=== PATIENT | male | born 1990 | race Caucasian/White ===

== ENCOUNTER 2019-11-23 13:45 | Emergency (ER) | payer BC ==
[2019-11-23 14:24] LABS: Absolute Lymphocytes (CBC) 2.1 K/uL (0.7-4.9); Basophils % 0.6 % (0-1.3); Hematocrit 39.6 % (39.6-49.0); Lymphocytes % 27.3 % (15.3-44.8); MPV 9.1 fL (7.6-11.3); RBC Red Blood Cell Count 5.04 M/uL (4.33-5.43)
[2019-11-23 14:28] LABS: Protime INR 1.02
--- NOTE | 2019-11-23 14:36 | RAD REPORT ---
EXAM DESCRIPTION: RAD - Chest Single View - 11/23/2019 2:24 pm CLINICAL HISTORY: CHEST PAIN COMPARISON: None TECHNIQUE: AP portable chest image was obtained 11/23/2019 2:24 pm . FINDINGS: Lungs are clear. Heart and vasculature are normal. No measurable pleural effusion and no p neumothorax. No acute bony abnormality seen. No acute aortic findings suspected. IMPRESSION: No acute cardiopulmonary process.
[2019-11-23 14:48] LABS: ALT/SGPT 70 U/L (12-78); AST/SGOT 26 U/L (15-37); Albumin 4.4 g/dL (3.4-5.0); Alkaline Phosphatase 77 U/L (45-117); BUN Blood Urea Nitrogen 16 mg/dL (7-18); Bicarbonate 26 mmol/L (21-32); Bilirubin Direct < 0.1 mg/dL (0-0.2); Bilirubin Total 0.3 mg/dL (0.2-1.0); Glucose Level 110 mg/dL (74-106); NT PRO-BNP 25 pg/mL (<125); Potassium 3.6 mmol/L (3.5-5.1); Protein, Total 7.9 g/dL (6.4-8.2); Sodium Level 140 mmol/L (136-145); Troponin (Emerg Dept Use Only) < 0.02 ng/mL (0.0-0.045)
[2019-11-23] MEDS ORDERED: NA CHLORIDE 0.9% 1,000 ML ONE (15:28)
--- NOTE | 2019-11-23 16:33 | RAD REPORT ---
EXAM DESCRIPTION: CT - Head Brain Wo Cont - 11/23/2019 4:18 pm CLINICAL HISTORY: SYNCOPE COMPARISON: No comparisons TECHNIQUE: Axial 5 mm thick images of the head were obtained without IV contrast. All CT scans are performed using dose optimization technique as appropriate and may include automated exposure control or mA/KV adjustment according to patient size. FINDINGS: No intracranial hemorrhage, mass, edema or shift of mid-line structures. No acute infarcti on changes seen. No abnormal extra-axial fluid collections. Ventricles are normal. Mastoid air cells and visualized portions of the paranasal sinuses are clear. No acute bony findings. IMPRESSION: Negative non-contrast CT head examination.
--- NOTE | 2019-11-23 16:43 | ER ---
Nurse's Notes [facility] Name: Goran Abreu Age: 29 yrs Sex: Male : 1990 Arrival Date: 11/23/2019 Time: 13:47 Bed 26 Private MD: Diagnosis: Syncope and collapse Presentation: 11/22 13:48 Chief complaint: Patient states: "I was at work and I felt funny and my body was numb sv and then I passed out, tongue tingling, chest pain since then. I feel fatigued." Denies cough, congestion. Reports feeling SOB, chills after passing out. Coronavirus screen: Patient denies fever greater than 100.4F, cough, shortness of breath, or difficulty breathing. Proceed with normal triage process. Ebola Screen: No symptoms or risks identified at this time. Risk Assessment: Do you want to hurt yourself or someone else? Patient reports no desire to harm self or others. 13:48 Method Of Arrival: Ambulatory sv 13:48 Acuity: RUPALI 3 sv 13:50 Onset of symptoms was November 23, 2019 at 12:00. bp 13:52 Initial Sepsis Screen: Does the patient meet any 2 criteria? No. Patient's initial sv sepsis screen is negative. Does the patient have a suspected source of infection? No. Patient's initial sepsis screen is negative. Triage Assessment: 13:57 General: Appears in no apparent distress. comfortable, obese, Behavior is cooperative, bp appropriate for age, anxious. Pain: Denies pain. EENT: No deficits noted. Neuro: Level of Consciousness is awake, alert, obeys commands, Oriented to person, place, time, situation, Appropriate for age. Cardiovascular: No deficits noted. Respiratory: No deficits noted. GI: No signs and/or symptoms were reported involving the gastrointestinal system. : No signs and/or symptoms were reported regarding the genitourinary system. Derm: No deficits noted. Musculoskeletal: No deficits noted. Historical: - Allergies: 13:51 No Known Allergies; sv - PMHx: 13:51 Borderline DM; High Cholesterol; sv - PSHx: 13:51 None; sv - Immunization history:: Adult Immunizations up to date. - Social history:: Smoking status: Patient reports use of chewing tobacco. Patient/guardian denies using tobacco, Stopped _ months ago .1 Patient uses alcohol, on a daily basis. Patient/guardian denies using street drugs, IV drugs. Screenin:59 Abuse screen: Denies threats or abuse. Denies injuries from another. Nutritional bp screening: No deficits noted. Tuberculosis screening: No symptoms or risk factors identified. Fall Risk None identified. Assessment: 13:59 General: SEE TRIAGE NOTE. bp 15:27 Reassessment: Patient appears in no apparent distress at this time. Patient and/or ls4 family updated on plan of care and expected duration. Pain level reassessed. Patient is alert, oriented x 3, equal unlabored respirations, skin warm/dry/pink. Patient states symptoms have improved. 16:58 Reassessment: PT D/C HOME AMBULATORY, DX WITH SYNCOPE. bp Vital Signs: 13:50 BP 135 / 69; Pulse 85; Resp 16; Temp 97.6; Pulse Ox 100% ; Weight 107.95 kg; Height 5 sv ft. 7 in. (170.18 cm); 14:14 BP 133 / 90; Pulse 76; Resp 16; Pulse Ox 99% ; bp 15:30 BP 137 / 94; Pulse 77; Resp 14; Pulse Ox 97% on R/A; Pain 0/10; ls4 16:58 BP 137 / 94; Pulse 72; Resp 16; Temp 98; Pulse Ox 95% ; bp 13:50 Body Mass Index 37.27 (107.95 kg, 170.18 cm) sv NIH Stroke Scale Scores: 14:24 NIHSS Score: 0 kb ED Course: 13:47 Patient arrived in ED. fj1 13:50 Triage completed. sv 13:51 Denisse Nicole FNP-C is [facility]. kb 13:51 Neil Mancia MD is Attending Physician. kb 13:52 Alejandro Steward, NIMA is Primary Nurse. bp 13:52 Arm band placed on. sv 13:59 Patient has correct armband on for positive identification. Bed in low position. Call bp light in reach. Side rails up X2. 14:10 Inserted saline lock: 20 gauge in right antecubital area, using aseptic technique. bp Blood collected. 14:44 XRAY Chest (1 view) In Process Unspecified. EDMS 16:18 CT Head Brain wo Cont In Process Unspecified. EDMS 16:58 No provider procedures requiring assistance completed. IV discontinued, intact, bp bleeding controlled, No redness/swelling at site. Pressure dressing applied. Administered Medications: 15:23 Drug: NS 0.9% 1000 ml Route: IV; Rate: 1000 ml; Site: right antecubital; ls4 17:00 Follow up: IV Status: Completed infusion; IV Intake: 1000ml bp Intake: 17:00 IV: 1000ml; Total: 1000ml. bp Outcome: 16:41 Discharge ordered by MD. dennis 16:58 Discharged to home ambulatory. bp 16:58 Condition: stable 16:58 Discharge instructions given to patient, Instructed on discharge instructions, follow up and referral plans. Demonstrated understanding of instructions, follow-up care. 17:03 Patient left the ED. bp NIH Stroke Scale - NIH Stroke Score Date: 11/23/2019 Time: 14:24 Total Score = 0 1a. Level of Consciousness (LOC) - 0(Alert) 1b. Level of Consciousness (LOC) (Year \\T\\ Age) - 0(Both) 1c. LOC Commands (Open \\T\\ Closes Eyes/Instructional Resource Teacher) - 0(Both) 2. Best Gaze (Lateral Gaze Paresis) - 0(Normal) 3. Visual Field Loss - 0(No visual loss) 4. Facial Palsy - 0(Normal) 5a. Left Arm: Motor (10-second hold) - 0(No drift) 5b. Right Arm: Motor (10-second hold) - 0(No drift) 6a. Left Leg: Motor (5-second hold - always test supine) - 0(No drift) 6b. Right Leg: Motor (5-second hold - always test supine) - 0(No drift) 7. Limb Ataxia (finger/nose \\T\\ heel/oconnell - test with eyes open) - 0(Absent) 8. Sensory Loss (pinprick arms/legs/face) - 0(Normal) 9. Best Language: Aphasia (description/naming/reading) - 0(No aphasia) 10. Dysarthria (speech clarity - read or repeat words) - 0(Normal) 11. Extinction and Inattention (visual/tactile/auditory/spatial/personal) - 0(No abnormality) Initials: sonny Signatures: Dispatcher [employer] EDMS Denisse Nicole, [address] RO[employer]-Samantha Mario RN RN sv Peltier, Brian, RN RN bp Stewart, Lisa, RN RN ls4 Gus Cook fj1 Corrections: (The following items were deleted from the chart) 13:52 13:50 Pulse 85bpm; Resp 16bpm; Pulse Ox 100%; Temp 97.6F; 107.95 kg; Height 5 sv ft. 7 in.; BMI: 37.2; sv 15:27 15:23 NS 0.9% 1000 ml IV at 1000 ml in left antecubital ls4 ls4
--- NOTE | 2019-11-23 16:43 | EDPHYS ---
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 14:29 The patient has experienced syncope, collapsed. Onset: The symptoms/episode kb began/occurred just prior to arrival. Duration: This was a single episode, lasted a few seconds. Context: the episode(s) was witnessed, by co-worker(s), occurred at work, occurred while the patient was standing, Just prior to the episode the patient experienced no apparent symptoms. Associated injury: The patient did not suffer any apparent associated injury. Associated signs and symptoms: Pertinent positives: chest pain, numbness, tingling. Current symptoms: Currently, the patient is not experiencing any symptoms, the patient feels back to baseline, no decreased level of consciousness, no confusion, no dysphasia, no headache, no paralysis, no visual changes. The patient has not experienced similar symptoms in the past. The patient has not recently seen a physician. Pt reports he took a nap in his truck after lunch, woke up and got out of the truck. States he started feeling numbness all over his body and then passed out for a couple of seconds. States his coworker told him he leaned backwards onto the truck and they helped him slide to the ground. Denies any injury. States symptoms could have been due to anxiety, but he wasn't sure so he thought he should come in. Reports he has some squeezing chest pain to left lower chest and is fatigued. Historical: - Allergies: 13:51 No Known Allergies; sv - PMHx: 13:51 Borderline DM; High Cholesterol; sv - PSHx: 13:51 None; sv - Immunization history:: Adult Immunizations up to date. - Social history:: Smoking status: Patient reports use of chewing tobacco. Patient/guardian denies using tobacco, Stopped _ months ago .1 Patient uses alcohol, on a daily basis. Patient/guardian denies using street drugs, IV drugs. ROS: 14:21 Constitutional: Negative for fever, chills, and weight loss, ENT: Negative for injury, kb pain, and discharge, Neck: Negative for injury, pain, and swelling, Cardiovascular: Negative for chest pain, palpitations, and edema, Respiratory: Negative for shortness of breath, cough, wheezing, and pleuritic chest pain, Abdomen/GI: Negative for abdominal pain, nausea, vomiting, diarrhea, and constipation, Back: Negative for injury and pain, MS/Extremity: Negative for injury and deformity, Skin: Negative for injury, rash, and discoloration. 14:21 Neuro: Positive for numbness, syncope, tingling, Negative for altered mental status, dizziness, gait disturbance, headache, hearing loss, loss of consciousness, seizure activity, speech changes, near syncope, tinnitus, tremor, visual changes, weakness. Exam: 14:24 Constitutional: This is a well developed, well nourished patient who is awake, alert, kb and in no acute distress. Head/Face: Normocephalic, atraumatic. Eyes: Pupils equal round and reactive to light, extra-ocular motions intact. Lids and lashes normal. Conjunctiva and sclera are non-icteric and not injected. Cornea within normal limits. Periorbital areas with no swelling, redness, or edema. ENT: Nares patent. No nasal discharge, no septal abnormalities noted. Tympanic membranes are normal and external auditory canals are clear. Oropharynx with no redness, swelling, or masses, exudates, or evidence of obstruction, uvula midline. Mucous membranes moist. Neck: Trachea midline, no thyromegaly or masses palpated, and no cervical lymphadenopathy. Supple, full range of motion without nuchal rigidity, or vertebral point tenderness. No Meningismus. Chest/axilla: Normal chest wall appearance and motion. Nontender with no deformity. No lesions are appreciated. Cardiovascular: Regular rate and rhythm with a normal S1 and S2. No gallops, murmurs, or rubs. Normal PMI, no JVD. No pulse deficits. Respiratory: Lungs have equal breath sounds bilaterally, clear to auscultation and percussion. No rales, rhonchi or wheezes noted. No increased work of breathing, no retractions or nasal flaring. Abdomen/GI: Soft, non-tender, with normal bowel sounds. No distension or tympany. No guarding or rebound. No evidence of tenderness throughout. Skin: Warm, dry with normal turgor. Normal color with no rashes, no lesions, and no evidence of cellulitis. MS/ Extremity: Pulses equal, no cyanosis. Neurovascular intact. Full, normal range of motion. Neuro: Awake and alert, GCS 15, oriented to person, place, time, and situation. Cranial nerves II-XII grossly intact. Motor strength 5/5 in all extremities. Sensory grossly intact. Cerebellar exam normal. Normal gait. 16:11 ECG was reviewed by the Attending Physician. kb Vital Signs: 13:50 BP 135 / 69; Pulse 85; Resp 16; Temp 97.6; Pulse Ox 100% ; Weight 107.95 kg; Height 5 sv ft. 7 in. (170.18 cm); 14:14 BP 133 / 90; Pulse 76; Resp 16; Pulse Ox 99% ; bp 15:30 BP 137 / 94; Pulse 77; Resp 14; Pulse Ox 97% on R/A; Pain 0/10; ls4 16:58 BP 137 / 94; Pulse 72; Resp 16; Temp 98; Pulse Ox 95% ; bp 13:50 Body Mass Index 37.27 (107.95 kg, 170.18 cm) sv NIH Stroke Scale Scores: 14:24 NIHSS Score: 0 kb MDM: 13:55 Patient medically screened. kb 14:24 Data reviewed: vital signs, nurses notes. Data interpreted: Pulse oximetry: on room air kb is 99 %. Interpretation: normal. 16:41 Counseling: I had a detailed discussion with the patient and/or guardian regarding: the kb historical points, exam findings, and any diagnostic results supporting the discharge/admit diagnosis, lab results, radiology results, the need for outpatient follow up, a family practitioner, to return to the emergency department if symptoms worsen or persist or if there are any questions or concerns that arise at home. 11/22 14:01 Order name: Basic Metabolic Panel; Complete Time: 14:57 kb 11/22 14:01 Order name: CBC with Diff; Complete Time: 14:33 kb 11/22 14:01 Order name: LFT's; Complete Time: 14:57 kb 11/22 14:01 Order name: Magnesium; Complete Time: 14:57 kb 11/22 14:01 Order name: NT PRO-BNP; Complete Time: 14:57 kb 11/22 14:01 Order name: PT-INR; Complete Time: 14:33 kb 11/22 14:01 Order name: Troponin (emerg Dept Use Only); Complete Time: 14:57 kb 11/22 14:01 Order name: XRAY Chest (1 view) kb 11/22 14:01 Order name: EKG; Complete Time: 14:03 kb 11/22 14:01 Order name: Cardiac monitoring; Complete Time: 14:06 kb 11/22 14:01 Order name: D-Dimer; Complete Time: 14:33 kb 11/22 14:06 Order name: Glucose, Ancillary Testing; Complete Time: 14:16 EDMS 11/22 15:48 Order name: CT Head Brain wo Cont kb 11/22 14:01 Order name: EKG - Nurse/Tech; Complete Time: 14:33 kb 11/22 14:01 Order name: IV Saline Lock; Complete Time: 14:14 kb 11/22 14:01 Order name: Labs collected and sent; Complete Time: 14:14 kb 11/22 14:01 Order name: O2 Per Protocol; Complete Time: 14:05 kb 11/22 14:01 Order name: O2 Sat Monitoring; Complete Time: 14:05 kb EC:11 Rate is 79 beats/min. Rhythm is regular. QRS [place] is Normal. MD interval is normal at kb 156 msec. QRS interval is normal at 90 msec. QT interval is normal at 370 msec. Administered Medications: 15:23 Drug: NS 0.9% 1000 ml Route: IV; Rate: 1000 ml; Site: right antecubital; ls4 17:00 Follow up: IV Status: Completed infusion; IV Intake: 1000ml bp Disposition: 18:41 Co-signature as Attending Physician, Neil Mancia MD I agree with the assessment and lacey plan of care. Disposition: 11/23/19 16:41 Discharged to Home. Impression: Syncope and collapse. - Condition is Stable. - Discharge Instructions: Syncope, [id number]. - Medication Reconciliation Form, Thank You Letter, Antibiotic Education, Prescription Opioid Use, Work release form form. - Follow up: Emergency Department; When: As needed; Reason: Worsening of condition. Follow up: Private Physician; When: 2 - 3 days; Reason: Recheck today's complaints, Continuance of care, Re-evaluation by your physician. NIH Stroke Scale - NIH Stroke Score Date: 11/23/2019 Time: 14:24 Total Score = 0 1a. Level of Consciousness (LOC) - 0(Alert) 1b. Level of Consciousness (LOC) (Year \T\ Age) - 0(Both) 1c. LOC Commands (Open \T\ Closes Eyes/Fixed Wing Pilot) - 0(Both) 2. Best Gaze (Lateral Gaze Paresis) - 0(Normal) 3. Visual Field Loss - 0(No visual loss) 4. Facial Palsy - 0(Normal) 5a. Left Arm: Motor (10-second hold) - 0(No drift) 5b. Right Arm: Motor (10-second hold) - 0(No drift) 6a. Left Leg: Motor (5-second hold - always test supine) - 0(No drift) 6b. Right Leg: Motor (5-second hold - always test supine) - 0(No drift) 7. Limb Ataxia (finger/nose \T\ heel/oconnell - test with eyes open) - 0(Absent) 8. Sensory Loss (pinprick arms/legs/face) - 0(Normal) 9. Best Language: Aphasia (description/naming/reading) - 0(No aphasia) 10. Dysarthria (speech clarity - read or repeat words) - 0(Normal) 11. Extinction and Inattention (visual/tactile/auditory/spatial/personal) - 0(No abnormality) Initials: kb Signatures: Dispatcher [employer] EDMS Denisse Nicole, KENYA-C MANUFACTURING TECHNICIAN-Samantha Mario RN RN sv Anderson, Corey, MD MD cha Peltier, Brian RN RN Vivian Jarrell RN RN ls4 Corrections: (The following items were deleted from the chart) 17:03 16:41 11/23/2019 16:41 Discharged to Home. Impression: Syncope and collapse. bp Condition is Stable. Forms are Medication Reconciliation Form, Thank You Letter, Antibiotic Education, Prescription Opioid Use. Follow up: Emergency Department; When: As needed; Reason: Worsening of condition. Follow up: Private Physician; When: 2 - 3 days; Reason: Recheck today's complaints, Continuance of care, Re-evaluation by your physician. kb
[2019-11-23 17:20] VITALS: BP 137/94
[2019-11-23 17:21] VITALS: TEMP 98; O2SAT 95
--- NOTE | 2019-11-24 15:29 | EKG ---
Test Date: 2019-11-23 Test Time: 16:05:49 Resistor Tester: [place] MEASUREMENT RESULTS: Intervals: Rate: 79 CO: 156 QRSD: 90 QT: 370 QTc: 424 Yoder: P: 48 CO: 156 QRS: 45 T: 49 INTERPRETIVE STATEMENTS: Normal sinus rhythm Normal ECG No previous ECG available for comparison Electronically Signed On 11-24-19 15:28:15 CDT by Barrington Alfaro
== END 2019-11-23 17:03 | disposition home or self-care (01) ==
LOC: ER 13:45
DX: R55 Syncope and collapse (principal); F17.220 Nicotine dependence, chewing tobacco, uncomplicated
CPT/HCPCS: 96361; 93005; 85025; 80048; 36415; 83735; 85610; 82947; 85379; 80076; 84484; 83880; 70450; 71045; 96360; 99284; J7030